=== PATIENT | female | born 1990 | race Caucasian/White ===

== ENCOUNTER 2023-08-04 22:25 | Emergency (ER) | payer OTHER, SELFPAY ==
[2023-08-04 22:27] VITALS: BP 144/88
[2023-08-04 22:43] LABS: % Basophils 0.7 % (0-2); % Eosinophils 0.8 % (0-6); % Immature Granulocytes 0.3 % (0-0.5); % Lymphocytes 27.9 % (20.5-51.1); % Neutrophils 65.3 % (42.2-75.2); Absolute Basophils 0.1 10^3/uL (0-0.2); Absolute Eosinophils 0.1 10^3/uL (0-0.7); Absolute Lymphocytes 2.6 10^3/uL (1.2-3.4); Absolute Monocytes 0.5 10^3/uL (0.1-0.6); Hematocrit 35.9 % (37.0-47.0); Hemoglobin 12.7 g/dL (12.0-16.0); Mean Corp Hgb Conc. 35.4 g/dL (33.0-37.0); Mean Corpuscular Hgb 29.7 pg (27.0-31.0); Mean Corpuscular Volume 84.1 fL (81.0-99.0); Mean Platelet Volume 9.3 fL (7.4-10.4); Nucleated Red Blood Cells % 0 %; Platelet Count 305 10^3/uL (130-400); Red Blood Cell Count 4.27 10^6/uL (4.20-5.40); Red Cell Dist. Width 12.7 % (11.5-14.5); White Blood Cell Count 9.2 10^3/uL (4.8-10.8)
[2023-08-04 22:59] LABS: ALT (SGPT) 16 U/L (0-35); AST (SGOT) 21 U/L (14-36); Albumin 4.5 g/dl (3.5-5.0); Alkaline Phosphatase 59 U/L (38-126); Blood Urea Nitrogen 10 mg/dl (7-17); Calcium 9.3 mg/dl (8.4-10.2); Carbon Dioxide 24 mmol/L (22-30); Chloride 104 mmol/L (98-107); Glucose 99 mg/dl (70-99); HCG, Serum Qualitative Screen Negative; Potassium 3.6 mmol/L (3.5-5.1); Sodium 135 mmol/L (135-145); Total Bilirubin 0.5 mg/dl (0.2-1.3); Total Protein 7.6 g/dl (6.3-8.2); eGFR > 60.00
--- NOTE | 2023-08-04 23:55 | ED.GENMED ---
History of Present Illness
General
Chief Complaint: Flank Pain
Source: patient
Exam Limitations: none
Time Seen by Provider: 08/04/23 23:44
Travel History
Have you had any contact with someone who has COVID-19?: No
Do you have any symptoms of coronavirus? Fever > 100 degrees, chills, cough, shortness of breath, sore throat, loss of taste or smell, muscle aches, or headache?: No
History of Present Illness
History of Present Illness:
This is a 32 year old female that comes in with c/o flank pain. States that a couple of weeks ago on the she started with symptoms of a UTI. State that she had bladder and kidney pain. States that on the she was started on Bactrim. States
that this helped but it never really cleared up totally. States that she still had right sided kidney pain that radiated around to the front. States that sometimes she feels like her abd is swollen. Then on the she was started in Cipro 500mg for
a UTI. States that the bottle was labeled wrong and she was only taking 1 tablet daily until Friday. States that she then started to take 2 tablets. States that that urine came back negative. States that her pain is worse and she was told to come to
the ER. States that sometimes she is SOB with the pain and has been nauseated. States that she occasionally has a headache. States that the urinary burning is on and off. Denies any fever, chills, chest pain, vomiting, diarrhea, dizziness.
Past History
Past History
ED Past Medical History: Other (UTI)
ED Past Surgical History: None
Social History
Tobacco: Non-smoker
Alcohol: Occasional
Personal:
Living: with family
Review of Systems
Review of Systems
All Other Systems: ROS reviewed and negative except as documented in HPI and ROS
Constitutional: Reports no symptoms; Denies fever or chills
EENT: Reports no symptoms
Respiratory: Reports trouble breathing (occasional with Pain); Denies cough
Cardiac: Reports no symptoms; Denies chest pain
ABD/GI: Reports abdominal pain and nausea; Denies vomiting or diarrhea
: Reports dysuria (on and off), frequency and flank pain (Right sided)
Musculoskeletal: Reports no symptoms
Skin: Reports no symptoms
Neurological: Reports headache (occasional); Denies dizzy
Psychiatric: Reports no symptoms
Phy Exam
General Physical Exam
General Presentation: well appearing and no apparent distress
General age: appears stated age
General Skin: warm and dry
General Habitus: normal
General Mental: alert
General Hydration: appears well hydrated
ENT Exam
ENT Exam: TM's normal, pharynx normal and neck supple
Eye Exam
Eye Exam: EOMI
Cardiovascular Exam
Cardiovascular Exam: regular rate/rhythm, no edema, no murmur and normal peripheral pulses
Pulmonary Exam
Pulmonary Exam: lungs clear, no respiratory distress, no rales, chest non tender, no crackles, no rhonchi, no wheezing and no cough
Gastrointestinal Exam
Gastrointestinal Exam: normal bowel sounds, soft, no organomegaly, no pulsatile mass, non distended, cva tenderness (Right sided) and tender (Slight right sided tenderness with palpation)
Musculoskeletal Exam
Musculoskeletal Exam: full ROM and no edema
Skin Exam
Skin Exam: normal color, warm/dry, no rash and no petechia
Psychiatric Exam
Psychiatric Exam: normal mood/affect
Course
Orders/Labs/Results
Orders:
Orders
08/04/23 22:33
Urinalysis Urgent
Date Specimen was Collected: 08/04/23
Time Specimen was Collected: 22:33
Test Result ONCE
08/04/23 22:36
CMP [Comprehensive Metabolic Panel] Urgent
Complete Blood Count/With Diff Urgent
HCG, Serum Qualitative Screen Urgent
08/04/23 23:54
0.9% Sodium Chloride 1000 ml [Nss] 1,000 ml IV BOLUS
08/05/23 00:00
Urine Microscopic Urgent
Date Specimen was Collected: 08/04/23
Time Specimen was Collected: 22:33
Urine Culture Urgent
MAYANK Source: U
Specimen Description:
Date Specimen was Collected: 08/04/23
Time Specimen was Collected: 22:33
Comment: ADDED PER CARLOS
08/05/23 00:05
CT Abd/pel Without Iv Or Oral Urgent
Reason For Exam: Right flank pain
08/05/23 00:56
CefTRIAXone [Rocephin] 1,000 mg IV NOW STA
08/05/23 01:13
Sterile Water [Sterile Water For Injection] 10 ml .ROUTE .STK-MED ONE
Abnormal Lab Results
08/04/23 08/05/23
22:36 00:00
Hct 35.9 L %
(37.0-47.0)
Ur Leukocyte Esterase 2+ A
(Negative)
Urine WBC >100 A /HPF
(0-5)
Urine Bacteria Many A
(Negative)
08/04/23 22:36
08/04/23 22:36
Labs unremarkable. HCG negative. Urine Positive for infection.
Vital Signs
Initial and Last Documented VS:
Initial Vital Signs
Temp Pulse Resp BP Pulse Ox
98.1 F 114 24 144/88 97
08/04/23 22:27 08/04/23 22:27 08/04/23 22:27 08/04/23 22:27 08/04/23 22:27
Last Documented Vital Signs
Temp Pulse Resp BP Pulse Ox
98.1 F 85 16 121/93 100
08/04/23 22:27 08/05/23 01:14 08/05/23 01:14 08/05/23 01:14 08/05/23 01:14
MDM/Problems Addressed
Differential Diagnosis Includes:
Renal calculus,
MDM/Problems Addressed:
This is a 32 year old female that comes in with c/o right sided flank pain. States that she has been treated for a UTI but the urine came back negative. states that she was told if her pain got worse to come to the ER for evaluation.
Will get labs, Urine and CT scan.
Back into see patient. Explained that her blood work is normal and her CT is negative for any acute process. However, she is positive for a UTI. Will have patient stop the Cipro and give patient an IV dose or Rocephin and started on Omnicef.
Explained that if she continues with UTI symptoms she will need to follow up with the Urologist. Patient to return with any concerns
Chronic conditions affecting care:
NA
Acute Exacerbation and/or Progression of Chronic Illness:
NA
*Radiology
Radiology exam reviewed: radiology read reviewed (CT night hawk- No acute intra-abdominal pathology. No hydronephrosis or nephrolithiasis. No bowel obstruction or inflammation. Appendix is normal. No free air or free fluid. )
*Pulse Oximetry
Patient hypoxic: no
*EKG
Interpreted by ED Provider?: NA
Rate: EKG- N/A
*Welcome Wagon Hostess Interpretation
Rate: Welcome Wagon Hostess- N/A
*Critical Care Note
Total Time (30-74mins, 75-104mins- exclusive of procedures): Not Applicable
ED Attending Note
-
Portions of this chart may have been created with voice recognition software.� Occasional wrong word or��sound alike� substitutions may have occurred due to the inherent limitations of voice recognition software.
Discharge Plan
Departure
Patient Disposition: Home (Routine Discharge)
Date of Disposition: 08/05/23
Time of Disposition: 01:20
Patient with high blood pressure during this ER visit?: No
Condition: Good
Covid-19: Not Applicable
Discharge Problem:
Urinary tract infection
Instructions: Urinary Tract Infection, Adult (DC)
Prescriptions:
New
cefdinir 300 mg capsule
300 mg PO BID Qty: 14 0RF
Referrals:
Carlton Thayer MD [Active] - As needed
Chelle Lake CRNP [Family Provider] - Call in 1-3 days for appt
Activity Restrictions/Additional Instructions:
As discussed, your blood work is normal. Your CT is negative for any acute process. Your urine is positive for infection. You have been given IV antibiotics here and a prescription has been sent to your Pharmacy. Please take as directed until
finished. PLEASE STOP THE CIPRO AT THIS TIME. Please increase your water intake to 8-8oz glasses daily. Follow up with the family doctor for recheck. If you continued with discomfort or frequent urinary tract infections you will needed to see the
Urologist. IF YOU HAVE FEVER, INCREASED OR CHANGING PAIN, OR YOU HAVE ANY OTHER CONCERNS PLEASE RETURN TO THE EMERGENCY ROOM.
Interventions
Interventions:
*Risk Screen - Suicide Last Done: 08/04/23 22:27
*General Assessment Last Done: 08/05/23 00:19
*Neglect/Abuse Screening Last Done: 08/04/23 22:33
ED- Fall Risk Assessment Last Done: 08/05/23 00:19
*ED COVID-19 Vaccine History Last Done: 08/05/23 00:19
GL-Ebhmpq-Tocctwukkn Assessment Last Done: 08/05/23 00:19
ED-Female Genitourinary Assessment Last Done: 08/05/23 00:19
[2023-08-05 00:19] VITALS: BMI 27.9
[2023-08-05 00:37] LABS: Urine Albumin Negative (Neg - Trace); Urine Bilirubin Negative (Negative); Urine Character Slightly Cloudy (Clear); Urine Color Yellow; Urine Glucose Negative (Negative); Urine Ketone Negative (Negative); Urine Leukocyte 2+ (Negative); Urine Nitrite Negative (Negative); Urine Occult Blood Negative (Negative); Urine Urobilinogen Negative (Neg - 1+)
[2023-08-05 00:54] LABS: Urine Bacteria Many (Negative); Urine Squamous Cell >30 /LPF (Few); Urine White Cell >100 /HPF (0-5)
[2023-08-05 00:55] LABS: Urine Red Blood Cell 0-2 /HPF (0-2)
[2023-08-05 01:14] VITALS: BP 121/93
[2023-08-05] MEDS: ROCEPHIN 1000 MG IV (01:17)
== END 2023-08-05 01:44 | disposition home or self-care (01) ==
LOC: EMR 22:25
PROVIDERS: EMERGENCY PHYSICIAN Emergency Medicine; FAMILY PHYSICIAN Nurse Practitioner Primary Care
DX: N39.0 Urinary tract infection, site not specified (principal)
CPT/HCPCS: 99284; 96374; 74176; 80053; 81003; 81015; 84703; 85025; 87086